=== PATIENT | male | born 1990 | race Caucasian/White ===

== ENCOUNTER 2017-08-17 17:03 | Emergency (ER) | payer MEDICAID | END 2017-08-17 17:50 | disposition home or self-care (01) | LOC: E/R 17:03 | DX: J01.00 Acute maxillary sinusitis, unspecified (principal); J18.1 Lobar pneumonia, unspecified organism | CPT/HCPCS: 99284; Z7502 ==

== ENCOUNTER 2018-08-02 08:10 | Emergency (ER) | payer MEDICAID ==
[2018-08-02] MEDS: KETOROLAC 60 MG INJ IM (08:42)
== END 2018-08-02 09:38 | disposition home or self-care (01) ==
LOC: FTE 08:10
DX: M54.5 Low back pain (principal)
CPT/HCPCS: 72100; 96372; 99284-25

== ENCOUNTER 2018-10-05 19:48 | Emergency (ER) | payer MEDICAID | END 2018-10-05 21:44 | disposition home or self-care (01) | LOC: FTE 21:44 | DX: H66.93 Otitis media, unspecified, bilateral (principal); J03.90 Acute tonsillitis, unspecified; L25.9 Unspecified contact dermatitis, unspecified cause; R40.2142 Coma scale, eyes open, spontaneous, at arrival to emergency department; R40.2362 Coma scale, best motor response, obeys commands, at arrival to emergency department; R40.2252 Coma scale, best verbal response, oriented, at arrival to emergency department | CPT/HCPCS: 99283; Z7502 ==

== ENCOUNTER 2018-10-12 11:22 | Emergency (ER) | payer MEDICAID | END 2018-10-12 13:58 | disposition home or self-care (01) | LOC: FTE 13:58 | DX: H93.93 Unspecified disorder of ear, bilateral (principal) | CPT/HCPCS: 99283; Z7502 ==